=== PATIENT | male | born 1970 | race Two or more races ===

== ENCOUNTER 2018-01-20 04:57 | Emergency (ER) | payer OTHER ==
[~2018-01-20] VITALS: Ht 177.8 cm; Wt 142.9 kg
[~2018-01-20 04:57] MED LIST: AMLODIPINE-BENA1 CA1; CIPRO500 MG PO; COZAAR25 MG; FLAGYL500MG PO; HYZAAR 50-12.1 UDTAB PO; NORVASC2.5 MG; NORVASC2.5 MG PO; PROTONIX40 MG PO; ZANTAC150 MG PO
[2018-01-20] MEDS ORDERED: ZITHROMAX500 MG (05:14)
[2018-01-20] MEDS ORDERED: UROXATRAL10 MG (05:15)
[2018-01-20] MEDS ORDERED: COZAAR50 MG (05:15)
[2018-01-22] MEDS ORDERED: LEVAQUIN500 MG (03:51)
[2018-01-22] MEDS ORDERED: PYRIDIUM DS200 MG (03:51)
== END 2018-01-20 08:31 | disposition home or self-care (01) ==
LOC: ER 04:57
DX: N39.0 Urinary tract infection, site not specified (principal)

== ENCOUNTER → 2018-01-22 | Emergency (ER) | payer OTHER ==
[~2018-01-22] VITALS: Ht 177.8 cm; Wt 140.6 kg
[~2018-01-22] MED LIST changes: +COZAAR50 MG; +LEVAQUIN500 MG; +PYRIDIUM DS200 MG; +UROXATRAL10 MG; +ZITHROMAX500 MG
== END | disposition left against medical advice (07) ==
LOC: ER 03:36
DX: R34 Anuria and oliguria (principal)

== ENCOUNTER 2018-08-03 19:00 | Emergency (ER) | payer OTHER ==
[~2018-08-03] VITALS: Ht 177.8 cm; Wt 127.0 kg
== END 2018-08-03 22:02 | disposition home or self-care (01) ==
LOC: ER 19:00
DX: R07.89 Other chest pain (principal)

== ENCOUNTER 2018-11-14 06:43 | Emergency (ER) | payer OTHER ==
[~2018-11-14] VITALS: Ht 177.8 cm; Wt 123.4 kg
[2018-11-14] MEDS ORDERED: LODINE XL500 MG (07:00)
[2018-11-14] MEDS ORDERED: NORFLEX100MG (07:01)
== END 2018-11-14 15:52 | disposition home or self-care (01) ==
LOC: ER 06:43
DX: K29.70 Gastritis, unspecified, without bleeding (principal); R10.13 Epigastric pain

== ENCOUNTER 2019-07-13 16:50 | Emergency (ER) | payer OTHER ==
[~2019-07-13] VITALS: Ht 177.8 cm; Wt 133.4 kg
[~2019-07-13 16:50] MED LIST changes: +LODINE XL500 MG; +NORFLEX100MG
[2019-07-13] MEDS ORDERED: LOSARTAN-HCTZ1 EAC2 PO (17:06)
== END 2019-07-13 17:46 | disposition home or self-care (01) ==
LOC: ER 16:50
DX: F41.1 Generalized anxiety disorder (principal); R06.02 Shortness of breath

== ENCOUNTER 2020-02-14 10:32 | Emergency (ER) | payer OTHER ==
[~2020-02-14] VITALS: Ht 177.8 cm; Wt 128.4 kg
[~2020-02-14 10:32] MED LIST changes: +LOSARTAN-HCTZ1 EAC2 PO
[2020-02-14] MEDS ORDERED: COZAAR50 MG (10:53)
== END 2020-02-14 13:45 | disposition home or self-care (01) ==
LOC: ER 10:32
DX: K29.60 Other gastritis without bleeding (principal); R10.13 Epigastric pain; T50.995A Adverse effect of other drugs, medicaments and biological substances, initial encounter; Y92.89 Other specified places as the place of occurrence of the external cause; Z03.818 Encounter for observation for suspected exposure to other biological agents ruled out

== ENCOUNTER 2020-12-26 06:14 | Emergency (ER) | payer OTHER ==
[~2020-12-26] VITALS: Ht 177.8 cm; Wt 131.5 kg
[2020-12-26] MEDS ORDERED: COZAAR100 MG (06:29)
== END 2020-12-26 15:53 | disposition home or self-care (01) ==
LOC: ER 06:14
DX: R10.32 Left lower quadrant pain (principal); R10.2 Pelvic and perineal pain; K57.92 Diverticulitis of intestine, part unspecified, without perforation or abscess without bleeding

== ENCOUNTER → 2021-03-28 | Emergency (ER) | payer OTHER ==
[~2021-03-28] VITALS: Ht 177.8 cm; Wt 131.5 kg
[~2021-03-28] MED LIST changes: +COZAAR100 MG; +TUSSIN15 MG/5 M1 PO; +UROXATRAL10 MG PO
== END | disposition left against medical advice (07) ==
LOC: ER 04:15
DX: Z53.21 Procedure and treatment not carried out due to patient leaving prior to being seen by health care provider (principal)